=== PATIENT | female | born 1940 | race Caucasian/White ===

== ENCOUNTER 2019-04-09 05:36 | Inpatient (IN) | payer OTHER ==
[2019-03-30 17:14] VITALS: BMI 21.6
[~2019-04-09] VITALS: Ht 162.6 cm; Wt 67.3 kg
[2019-04-09] VITALS (29 sets, daily range): BP systolic 99–143; BP diastolic 53–85; PULSE 64–92; RESP 13–20; Ht 162.6 cm; Wt 67.3 kg
[2019-04-09] MEDS ORDERED: ACETAMINOPHEN 1000MG/100ML IV 100 ML IVPB ONE (06:00)
[2019-04-09] MEDS ORDERED: CEFAZOLIN 2 GM/50 ML (PMX) 50 ML (FOR WT < 120 KG) IVPB ONE (06:30)
[2019-04-09] MEDS ORDERED: ACETAMINOPHEN 500 MG TAB PO ONE (06:30)
[2019-04-09] MEDS ORDERED: LACTATED RINGER'S 1,000 ML IV SCH (06:30)
[2019-04-09] MEDS ORDERED: DEXAMETHASONE 4 MG/ML 1 ML INJ IV ONE (06:30)
[2019-04-09] MEDS ORDERED: POLYMYXIN B 500000 UNIT INJ ONE ×2 (06:59→08:17)
[2019-04-09] MEDS ORDERED: BACITRACIN 50000 UNITS INJ ONE (07:00)
[2019-04-09] MEDS ORDERED: POLYMYXIN/BACITRACIN 1L IRRIG ONE (07:00)
[2019-04-09] MEDS ORDERED: PROG100C5 ORAL (07:06)
[2019-04-09] MEDS ORDERED: BIMA2.5D OP (07:06)
[2019-04-09] MEDS ORDERED: TIMO15DR16 OP (07:06)
[2019-04-09] MEDS ORDERED: SIMV40TA7 ORAL (07:06)
[2019-04-09] MEDS ORDERED: ESTR0.5T ORAL (07:06)
--- NOTE | 2019-04-09 07:07 | PREAC ---
Date/Time of Note Date/Time of Note DATE: 04/09/19 TIME: 07:06 Anesthesia Eval and Record Evaluation Time Pre-Procedure Interview DATE: 04/09/19 TIME: 07:06 Age 79 Sex female NPO: 8 hrs Preoperative diagnosis Right hip degenerative joint disease Planned procedure Right anterior total hip replacement Past Medical History Past Medical History: Includes Cardio: Dyslipidemia Surgery & Anesthesia Issues No known issue Meds Anticoagulation: No Beta Keely within 24 hr: No Reason Beta Keely not given: Pt. not on B-Keely Reported Medications Timolol Maleate* (Timolol Maleate* Ophth) 0.5%-15ml Opht, 1 DROP OP BID 04/09/19 Bimatoprost* (Lumigan*) 0.01%-2.5 Ml Opht Drops, 1 DROP OP DAILY DIRECTED 04/09/19 Progesterone,Micronized* (Progesterone*) 100 Mg Capsule, 1 TAB ORAL DAILY 04/09/19 Estradiol (Estradiol) 0.5 Mg Tablet, 1 TAB ORAL DAILY 04/09/19 Simvastatin (Simvastatin) 40 Mg Tablet, 1 TAB ORAL DAILY 04/09/19 Current Medications Lactated Ringer's 1,000 ml @ 25 mls/hr Q24H IV ; Start 04/09/19 at 06:30; Stop 04/09/19 at 17:00 Tranexamic Acid 100 ml @ 200 mls/hr AT INCISION ONCE IVPB ; Start 04/09/19 at 07:30; Stop 04/09/19 at 07:59 Tranexamic Acid 100 ml @ 330 mls/hr AT CLOSURE ONCE IVPB ; Start 04/09/19 at 07:30; Stop 04/09/19 at 07:48 Ropivacaine/ Clonidine HCl/ Epinephrine/ Ketorolac Tromethamine/ Sodium Chloride INTRA-OP ONCE IRR ; Start 04/09/19 at 07:30; Stop 04/09/19 at 07:31 Meds reviewed: Yes Allergies Coded Allergies: No Known Allergy (Verified , 04/09/19) Allergies Reviewed: Yes Labs/Studies Labs Reviewed: Reviewed by anesthesiologist test: N/A Pre-procedure Exam Airway: Adequate mouth opening Mallampati: Mallampati I Teeth: Normal Lung: Normal Heart: Normal ASA Physical Status ASA physical status: 2 Emergency: None Planned Anesthetic General/MAC: ETT, LMA Pre-operative Attestations Prior to commencing anesthesia and surgery, the patient was re-evaluated, there was verification of: *The patient's identity *The results of appropriate recent lab work and preoperative vital signs *The above evaluation not changing prior to induction *Anesthetic plan, risk benefits, alternative and complications discussed with patient/family; questions answered; patient/family understands, accepts and wishes to proceed. AFRICA BALDERAS MD April 09, 2019 07:07
[2019-04-09] MEDS ORDERED: METOCLOPRAMIDE 10 MG INJ ONE (07:27)
[2019-04-09] MEDS ORDERED: PROPOFOL 20 ML ONE (07:27)
[2019-04-09] MEDS ORDERED: ONDANSETRON 4 MG INJ ONE (07:27)
[2019-04-09] MEDS ORDERED: LIDOCAINE 2% (SDV) 5 ML INJ ONE (07:27)
[2019-04-09] MEDS ORDERED: CEFAZOLIN 1 GM INJ ONE (07:27)
[2019-04-09] MEDS ORDERED: TRANEXAMIC ACID 1GM/100ML(PMX) 100 ML AT INCISION X1 IVPB ONE (07:30)
[2019-04-09] MEDS ORDERED: TRANEXAMIC ACID 1GM/100ML(PMX) 200 ML ONE (07:34)
--- NOTE | 2019-04-09 07:36 | HPN ---
Date/Time of Note Date/Time of Note DATE: 04/09/19 TIME: 07:35 Interval H&P Admission Note Pt. seen H&P reviewed: Systems changes noted below Rash noted on thighs, no sign of infection. Rash is from shaving, OK to proceed with surgery JESUS SAM April 09, 2019 07:36
[2019-04-09] MEDS: TRANEXAMIC ACID 1GM/100ML(PMX) 100 ML AT CLOSURE X1 IVPB ONE ×2 (07:56→08:44)
[2019-04-09] MEDS: LACTATED RINGER'S 1,000 ML IV SCH ×3 (07:58→20:24)
[2019-04-09] MEDS ORDERED: KETOROLAC 15 MG INJ IV PRN (08:00)
[2019-04-09] MEDS ORDERED: NACL 0.9% 3 ML SYG IV SCH (08:00)
[2019-04-09] MEDS ORDERED: DIPHENHYDRAMINE 50 MG INJ IV PRN ×2 (08:00→09:30)
[2019-04-09] MEDS ORDERED: NALOXONE (0.4 MG/ML) INJ IV PRN (08:00)
[2019-04-09] MEDS ORDERED: oxyCODONE 5 MG TAB PO PRN ×2 (08:00)
[2019-04-09] MEDS ORDERED: MAGNESIUM HYDROXIDE 30ML CUP PO PRN (08:00)
[2019-04-09] MEDS ORDERED: EPHEDrine 25 MG/5 ML SYG ONE (08:15)
[2019-04-09] MEDS: GABAPENTIN 100 MG CAP PO SCH ×4 (09:00→22:18)
--- NOTE | 2019-04-09 09:11 | SIPON ---
Date/Time of Note Date/Time of Note DATE: 04/09/19 TIME: 09:10 Operative Report Preoperative Diagnosis Right hip osteoarthritis Postoperative Diagnosis Same Operation/Procedure Performed Right total hip replacement Surgeon see signature line assistant food service director KIMO Jensen Anesthesia: spinal Estimated blood loss: 150 - 200 ml's Transfusion Required none Specimen Bone Grafts/Implants Romayor hip, 56 mm cup, size 5 stem, 36 mm ceramic head Complications none JESUS SAM April 09, 2019 09:11
--- NOTE | 2019-04-09 09:14 | OPR ---
Date/Time of Note Date/Time of Note DATE: 04/09/19 TIME: 09:11 Operative Report Procedure Date: April 09, 2019 Preoperative Diagnosis Right hip osteoarthritis Postoperative Diagnosis Same Operation/Procedure Performed Right total hip replacement Surgeon see signature line Scientific Advisor KIMO Jensen Anesthesia Type: spinal Estimated Blood Loss: 150 - 200 ml's Transfusion none Specimen Bone Grafts/Implants Jamie hip, 56 cup, 5 stem, 36+5 ceramic head Tubes/Drains None Complications none Pt Condition Post Procedure: stable Disposition: PACU Indications Patient is a 79-year-old lady with advanced osteoarthritis of her right hip Procedure Description The patient was placed supine on the operating room table. All bony points were well-padded the right hip was prepped and draped in usual manner. An anterior incision was made. The plane between the sartorius and tensor fascia gabriel was developed in a blunt fashion. Branches of the circumflex vessels were identified and cauterized with aqua Mantis. The hip capsule was opened. Advanced osteoarthritis was encountered. There was complete loss of cartilage, deformity of the femoral head and large osteophytes. Osteophytes were removed. Reaming of the acetabulum was done with [employer] reamers up to a size 55. A 56 trial cup was well fitting. The [place] cup was placed in 40 degrees of abduction and 20 degrees of anteversion. One screw was used to enhance fixation. A liner was placed to accommodate a 36 mm femoral head. The leg was extended and externally rotated. The IM canal was prepared for Actis stem. A size 5 stem was well fitting. This was placed with a standard offset neck and 36 mm head for trial reduction. The reduction was stable with a +5 head. A ceramic femoral head was placed. The hip was thoroughly irrigated and injected with pain cocktail. The wound was closed in layers using #1 strata fix for deep fascia, 2-0 Vicryl for subcutaneous tissue and 3-0 Monocryl for the skin. Patient was transferred to the recovery room in stable condition JESUS SAM April 09, 2019 09:14
[2019-04-09] MEDS ORDERED: FENTAnyl 50 MCG/ML VIAL IV PRN ×3 (09:30)
[2019-04-09] MEDS ORDERED: METOCLOPRAMIDE 10 MG INJ IV PRN (09:30)
[2019-04-09] MEDS ORDERED: OXYCODONE/ACETAMINOPHEN (5/325) TAB PO PRN ×2 (09:30)
[2019-04-09] MEDS ORDERED: MIDAZOLAM 1 MG/ML 2 ML INJ IV PRN (09:30)
[2019-04-09] MEDS ORDERED: LABETALOL HCL 20MG INJ IV PRN (09:30)
[2019-04-09] MEDS ORDERED: EPHEDrine 25 MG/5 ML SYG IV PRN (09:30)
[2019-04-09] MEDS ORDERED: ONDANSETRON 4 MG INJ IV PRN (09:30)
[2019-04-09] MEDS ORDERED: HYDROmorphONE 1 MG/5 ML IV SYRINGE IV PRN ×3 (09:30)
[2019-04-09] MEDS ORDERED: MEPERIDINE 25 MG INJ IV PRN (09:30)
[2019-04-09] MEDS ORDERED: hydrALAzine 20 MG INJ IV PRN (09:30)
[2019-04-09] MEDS: CEFAZOLIN 2 GM/50 ML (PMX) 50 ML IVPB SCH ×2 (10:01→16:52)
--- NOTE | 2019-04-09 13:28 | PAC ---
Date/Time of Note Date/Time of Note DATE: 04/09/19 TIME: 13:28 Post-Anesthesia Notes Post-Anesthesia Note Last documented vital signs Vital Signs Date Temp Pulse Resp B/P (MAP) Pulse Ox O2 O2 Flow FiO2 Time Delivery Rate 04/09/19 70 15 106/75 95 Room Air 13:13 (85) 04/09/19 6.0 09:43 04/09/19 98.2 09:32 Activity: WNL Respiratory function: WNL Cardiovascular function: WNL Mental status: Baseline Pain reasonably controlled: Yes Hydration appropriate: Yes Nausea/Vomiting absent: Yes Comments BT: 98.5 AFRICA BALDERAS MD April 09, 2019 13:28
[2019-04-09] MEDS ORDERED: BIMATOPROST 0.01% 2.5 ML BTL OP SCH (17:30)
--- NOTE | 2019-04-09 17:35 | HP ---
Date/Time of Note Date/Time of Note DATE: 04/09/19 TIME: 17:31 Assessment/Plan VTE Prophylaxis Risk score (from Ns)>0 risk: 5 [place] [facility] [place] Pharmacological prophylaxis: NA/contraindicated Pharm contraindication: surgical contra Lines/Catheters IV Catheter Type (from Nrsg): Peripheral IV Assessment/Plan Assessment/Plan -Right hip osteoarthritis. S/p Right total hip replacement by Dr. Gutierrez on 04/09/2019, continue IV fluids and postoperative antibiotic. Continue oxycodone and Toradol as needed for pain and Zofran as needed for nausea. Physical therapy. -HLD, continue statin. Further recommendations based on clinical course. Plan of care discussed with Dr. Boswell. HPI/ROS Admit Date/Time Admit Date/Time April 09, 2019 at 05:36 Hx of Present Illness The patient is a 79-year-old female with hyperlipidemia, advanced osteoarthritis and glaucoma. Patient was evaluated for increased pain in her right hip by Dr. Gutierrez in orthopedic surgery consultation. Patient had a history of left total hip replacement in 2008. Patient wanted definitive treatment and underwent total right hip replacement today. Patient is admitted for further management to medical surgical floor. Patient denies any chest pain denies shortness of breath denies any nausea. ROS 12 point review of system is negative except for what mentioned in HPI PMH/Family/Social Past Medical History Medical History: high cholesterol, other (Glaucoma) Medications Current Medications Lactated Ringer's 1,000 ml @ 80 mls/hr [id number] IV Last administered on 04/09/19at 14:55; Admin Dose 80 MLS/HR; Start 04/09/19 at 07:58 Oxycodone HCl (Roxicodone) 10 mg Q4H PRN PO .PAIN; Start 04/09/19 at 08:00 Oxycodone HCl (Roxicodone) 5 mg Q4H PRN PO .PAIN; Start 04/09/19 at 08:00 Ondansetron HCl (Zofran Inj) 4 mg Q4H PRN IV NAUSEA/VOMITING; Start 04/10/19 at 08:00 Cefazolin Sodium/ Dextrose 50 ml @ 100 mls/hr Q8H IVPB Last administered on 04/09/19at 16:52; Admin Dose 100 MLS/HR; Start 04/09/19 at 08:00; Stop 04/10/19 at 00:29 Celecoxib (Celebrex) 100 mg BID PO ; Start 04/10/19 at 09:00 Gabapentin (Neurontin) 100 mg TID PO Last administered on 04/09/19at 14:53; Admin Dose 100 MG; Start 04/09/19 at 09:00 Pantoprazole (Protonix Tab) 40 mg DAILY@06 PO ; Start 04/10/19 at 06:00 Docusate Sodium (Colace) 200 mg BID PO ; Start 04/10/19 at 09:00; Stop 04/12/19 at 21:01 Magnesium Hydroxide (Milk Of Mag) 30 ml HS PRN PO .CONSTIPATION; Start 04/09/19 at 08:00 Diphenhydramine HCl (Benadryl) 25 mg Q4H PRN IV .ITCHING; Start 04/09/19 at 08:00 Ketorolac Tromethamine (Toradol) 15 mg Q6H PRN IV .PAIN; Start 04/09/19 at 08:00 Naloxone HCl (Narcan) 0.2 mg Q2M PRN IV .RESP RATE; Start 04/09/19 at 08:00 IV Flush (NS 3 ml) 3 ml per protocol IV ; Start 04/09/19 at 08:00 Aspirin (Halfprin) 81 mg BID PO ; Start 04/10/19 at 09:00 Hydromorphone HCl (Dilaudid) 0.2 mg PACU PRN IV MILD PAIN 1-3; Start 04/09/19 at 09:30; Stop 04/09/19 at 18:00 Hydromorphone HCl (Dilaudid) 0.4 mg PACU PRN IV MOD PAIN 4-6; Start 04/09/19 at 09:30; Stop 04/09/19 at 18:00 Hydromorphone HCl (Dilaudid) 0.6 mg PACU PRN IV SEVERE PAIN 7-10; Start 04/09/19 at 09:30; Stop 04/09/19 at 18:00 Fentanyl (Sublimaze) 25 mcg PACU ORDER PRN IV MILD PAIN 1-3; Start 04/09/19 at 09:30; Stop 04/09/19 at 18:00 Fentanyl (Sublimaze) 50 mcg PACU ORDER PRN IV MOD PAIN 4-6; Start 04/09/19 at 09:30; Stop 04/09/19 at 18:00 Fentanyl (Sublimaze) 75 mcg PACU ORDER PRN IV SEVERE PAIN 7-10; Start 04/09/19 at 09:30; Stop 04/09/19 at 18:00 Oxycodone/ Acetaminophen (Percocet (5/ 325)) 1 tab PACU ORDER PRN PO .PAIN 1-5; Start 04/09/19 at 09:30; Stop 04/09/19 at 18:00 Oxycodone/ Acetaminophen (Percocet (5/ 325)) 2 tab PACU ORDER PRN PO .PAIN 6-10 Last administered on 04/09/19at 10:32; Admin Dose 2 TAB; Start 04/09/19 at 09:30; Stop 04/09/19 at 18:00 Ondansetron HCl (Zofran Inj) 4 mg PACU ORDER PRN IV NAUSEA/VOMITING Last administered on 04/09/19at 10:31; Admin Dose 4 MG; Start 04/09/19 at 09:30; Stop 04/09/19 at 18:00 Metoclopramide HCl (Reglan) 10 mg PACU ORDER PRN IV NAUSEA/VOMITING; Start 04/09/19 at 09:30; Stop 04/09/19 at 18:00 Labetalol HCl (Labetalol) 5 mg PACU ORDER PRN IV HIGH BLOOD PRESSURE; Start 04/09/19 at 09:30; Stop 04/09/19 at 18:00 Hydralazine HCl (Apresoline) 5 mg PACU ORDER PRN IV HIGH BLOOD PRESSURE; Start 04/09/19 at 09:30; Stop 04/09/19 at 18:00 Ephedrine Sulfate 5 mg PACU ORDER PRN IV BLOOD PRESSURE SUPPORT; Start 04/09/19 at 09:30; Stop 04/09/19 at 18:00 Meperidine HCl (Demerol) 25 mg PACU ORDER PRN IV .RIGORS; Start 04/09/19 at 09:30; Stop 04/09/19 at 18:00 Diphenhydramine HCl (Benadryl) 25 mg PACU ORDER PRN IV .PRURITUS; Start 04/09/19 at 09:30; Stop 04/09/19 at 18:00 Midazolam HCl (Versed) 0.5 mg PACU ORDER PRN IV .ANXIETY; Start 04/09/19 at 09:30; Stop 04/09/19 at 18:00 Coded Allergies: No Known Allergy (Verified , 04/09/19) Past Surgical History Past Surgical Hx: appendectomy, other (Status post left hip replacement in 2008) Family History Significant Family History: no pertinent family hx Social History Alcohol Use: occasionally Smoking Status: Never smoker Drug Use: none Exam/Review of Systems Vital Signs Vitals Vital Signs Date Temp Pulse Resp B/P (MAP) Pulse Ox O2 O2 Flow FiO2 Time Delivery Rate 04/09/19 84 18 132/72 97 Room Air 16:30 (92) 04/09/19 97.7 13:45 04/09/19 6.0 09:43 Exam Constitutional: alert, oriented Head: normocephalic Neck: supple Respiratory: clear to auscultation Cardiovascular: nl pulses Gastrointestinal: soft, non-tender Musculoskeletal: other (Status post total right knee replacement) Extremities: normal pulses Neurological: nl mental status Skin: nl MAKENZIE Vargas April 09, 2019 17:35
[2019-04-09] MEDS ORDERED: LATANOPROST 0.005% 2.5 ML OPH BOTH EYES SCH (18:00)
[2019-04-09] MEDS ORDERED: LUMIGAN 0.01% BOTH EYES SCH ×2 (21:00→22:27)
[2019-04-09] MEDS ORDERED: ESTRADIOL 1 MG TAB PO SCH (21:00)
[2019-04-09] MEDS ORDERED: ATORVASTATIN 20 MG TAB PO SCH (21:00)
[2019-04-09] MEDS ORDERED: TIMOLOL 0.5% 5 ML OPH BOTH EYES SCH (21:00)
[2019-04-09] MEDS ORDERED: LACTOBACILLUS RHAMNOSUS CAP PO SCH (21:00)
[2019-04-09] MEDS: PROGESTERONE 100 MG CAP PO SCH (22:18)
[2019-04-09] MEDS: TIMOLOL 0.5% 5 ML OPH BOTH EYES SCH (22:18)
[2019-04-09] MEDS: PROBIOTIC 10 PO SCH (22:20)
[2019-04-09] MEDS: ESTRADIOL 0.5 MG PO SCH (22:20)
[2019-04-09] MEDS: SIMVASTATIN 40 MG PO SCH (22:22)
[2019-04-10] MEDS: CEFAZOLIN 2 GM/50 ML (PMX) 50 ML IVPB SCH (00:58)
[2019-04-10 02:00] VITALS: BP 124/60; PULSE 73; RESP 18
[2019-04-10] MEDS: PANTOPRAZOLE (EC) 40 MG TAB PO SCH (06:00)
[2019-04-10 07:44] VITALS: BP 131/60; PULSE 79; RESP 18
[2019-04-10] MEDS ORDERED: ONDANSETRON 4 MG INJ IV PRN (08:00)
[2019-04-10] MEDS ORDERED: ESTRADIOL ORAL SCH (09:00)
[2019-04-10] MEDS ORDERED: PROGESTERONE 100 MG CAP PO SCH (09:00)
[2019-04-10] MEDS: ASPIRIN (EC) 81 MG TAB PO SCH ×2 (09:42→21:00)
[2019-04-10] MEDS: GABAPENTIN 100 MG CAP PO SCH ×3 (09:43→21:00)
[2019-04-10] MEDS: DOCUSATE SODIUM 100 MG CAP PO SCH ×2 (09:43→21:00)
[2019-04-10] MEDS: TIMOLOL 0.5% 5 ML OPH BOTH EYES SCH ×2 (09:44→20:59)
[2019-04-10] MEDS: CELECOXIB 100 MG CAP PO SCH ×2 (09:44→21:00)
--- NOTE | 2019-04-10 12:56 | PN ---
DATE: 04/10/2019 SUBJECTIVE: The patient still has significant postoperative pain in the right hip. Denies any chest pain, shortness of breath. No history of nausea or vomiting. PHYSICAL EXAMINATION: GENERAL: Reveals the patient to be awake, alert. VITAL SIGNS: Temperature 98.6, pulse 79, respiration 19, blood pressure 131/60, O2 sat is 94% on tomy m air. HEENT: No eye discharge or redness. Conjunctivae and lids are normal. Oropharynx is clear. NECK: No mass. CHEST: Fairly clear. CARDIOVASCULAR: S1, S2 normal. No murmur. ABDOMEN: Soft, nondistended, nontender. EXTREMITIES: No edema. NEUROLOGIC: The patient is awake, alert, follows simple commands. LABORATORY DATA: Done this morning, WBC 11.5, hemoglobin 11.2, platelet 215. Chemistry is unremarka ble with potassium of 4.5, BUN 20, creatinine 0.9. IMPRESSION: 1. Right hip osteoarthritis status post right total knee replacement. 2. Dyslipidemia. PLAN: The patient will continue aspirin 81 mg b.i.d. for DVT prophylaxis. Continue Celebrex, Neuron tin and Roxicodone for pain control. Continue PT as tolerated. DISPOSITION: Once cleared by Dr. Sam. We will continue to follow. Dictated By: DERRICK ERIC/CLAUDIA Conf#: [id number] DID#: [id number] CC: JESUS SAM MD;*EndCC*
--- NOTE | 2019-04-10 15:01 | PN ---
Date/Time of Note Date/Time of Note DATE: 04/10/19 TIME: 15:00 Assessment/Plan Lines/Catheters IV Catheter Type (from Nrsg): Saline Lock Kimble in Place (from Nrsg): No Assessment/Plan Chief Complaint/Hosp Course POD#1 s/p primary right JEROD -Post op H&H stable -PT/OT. -Joints pain control protocol -DVT prophylaxis: SCD's, ASA 81 mg twice daily -Weight bearing status: as tolerated -Post-op XR ordered -Diet: ADAT -Kimble: Discontinue -Discharge planning consult Planned Discharge Date: Tomorrow Discharge to to [facility] Subjective 24 Hr Interval Summary Patient doing well No acute events overnight Pain is moderately well controlled Exam/Review of Systems Vital Signs Vitals Vital Signs Date Temp Pulse Resp B/P (MAP) Pulse Ox O2 O2 Flow FiO2 Time Delivery Rate 04/10/19 98.6 79 18 131/60 94 07:44 (83) 04/09/19 Room Air 16:30 04/09/19 6.0 09:43 Intake and Output 04/09/19 04/09/19 04/10/19 1515:00 23:00 07:00 IntakeIntake Total 400 ml 1240 ml 390 ml OutputOutput Total 10 ml 800 ml BalanceBalance 390 ml 440 ml 390 ml Exam Free Text/Dictation Right lower extremity: Dressing: clean, dry, and intact, no erythema Sensation intact to light touch in a sural, saphenous, deep peroneal, superficial peroneal, medial and lateral plantar nerve distribution. Motor is intact, patient able to dorsiflex and plantarflex ankle and extend and flex great toe. Dorsalis Pedis pulse +2, Brisk capillary refill. Compartments are soft. Calves non-tender to palpation bilaterally. Results Result Diagram: 04/10/19 0440 04/10/19 0440 DANIELLA GIL MD April 10, 2019 15:01
[2019-04-10 15:29] VITALS: BP 120/57; PULSE 71; RESP 19
[2019-04-10 20:00] VITALS: BP 119/56; PULSE 76; RESP 16
[2019-04-10] MEDS: PROBIOTIC 10 PO SCH (20:59)
[2019-04-10] MEDS: ESTRADIOL 0.5 MG PO SCH (20:59)
[2019-04-10] MEDS: PROGESTERONE 100 MG CAP PO SCH (21:00)
[2019-04-10] MEDS: SIMVASTATIN 40 MG PO SCH (21:00)
[2019-04-10] MEDS: LACTATED RINGER'S 1,000 ML IV SCH (21:28)
[2019-04-11 02:05] VITALS: BP 119/56; PULSE 72; RESP 16
[2019-04-11] MEDS: PANTOPRAZOLE (EC) 40 MG TAB PO SCH (06:32)
[2019-04-11 09:13] VITALS: BP 123/71; PULSE 89; RESP 18
[2019-04-11] MEDS: GABAPENTIN 100 MG CAP PO SCH ×2 (09:27→14:21)
[2019-04-11] MEDS: TIMOLOL 0.5% 5 ML OPH BOTH EYES SCH (09:28)
[2019-04-11] MEDS: ASPIRIN (EC) 81 MG TAB PO SCH (09:28)
[2019-04-11] MEDS: DOCUSATE SODIUM 100 MG CAP PO SCH (09:28)
[2019-04-11] MEDS: CELECOXIB 100 MG CAP PO SCH (09:28)
[2019-04-11] MEDS: LACTATED RINGER'S 1,000 ML IV SCH (09:39)
--- NOTE | 2019-04-11 09:58 | PN ---
Date/Time of Note Date/Time of Note DATE: 04/11/19 TIME: 09:57 Assessment/Plan Lines/Catheters IV Catheter Type (from Nrsg): Saline Lock Kimble in Place (from Nrsg): No Assessment/Plan Chief Complaint/Hosp Course POD#2 s/p primary right JEROD. Patient is doing well overall. She is anxious this morning. Patient is concerned about pain over her anterior thigh. Stated that her swelling and pain is within normal limits and to be expected at this time. She is medically stable and surgically stable to be discharged today. -Post op H&H stable -PT/OT. -Joints pain control protocol -DVT prophylaxis: SCD's, ASA 81 mg twice daily -Weight bearing status: as tolerated -Diet: ADAT -Kimble: Discontinue -Discharge planning consult Planned Discharge Date: Tomorrow Discharge to to [facility] Subjective 24 Hr Interval Summary Patient doing well No acute events overnight Pain is moderately well controlled. Patient is anxious. Exam/Review of Systems Vital Signs Vitals Vital Signs Date Temp Pulse Resp B/P (MAP) Pulse Ox O2 O2 Flow FiO2 Time Delivery Rate 04/11/19 98.4 89 18 123/71 96 09:13 (88) 04/10/19 Room Air 15:29 04/09/19 6.0 09:43 Intake and Output 04/10/19 04/10/19 04/11/19 1515:00 23:00 07:00 IntakeIntake Total 640 ml 480 ml 320 ml BalanceBalance 640 ml 480 ml 320 ml Exam Free Text/Dictation Right lower extremity: Dressing: clean, dry, and intact, no erythema. Mild swelling to right thigh. No ecchymosis. No deformity. Sensation intact to light touch in a sural, saphenous, deep peroneal, superficial peroneal, medial and lateral plantar nerve distribution. Motor is intact, patient able to dorsiflex and plantarflex ankle and extend and flex great toe. Dorsalis Pedis pulse +2, Brisk capillary refill. Compartments are soft. Calves non-tender to palpation bilaterally. Results Result Diagram: 04/11/19 0444 04/11/19 0444 DANIELLA GIL MD April 11, 2019 09:58
--- NOTE | 2019-04-11 10:01 | DS ---
Date/Time of Note Date/Time of Note DATE: 04/11/19 TIME: 10:01 Discharge Summary Admission/Discharge Info Admit Date/Time April 09, 2019 at 05:36 Discharge Date/Time Patient Condition: Good Hospital Course POD#2 s/p primary right JEROD. Patient is doing well overall. She is anxious this morning. Patient is concerned about pain over her anterior thigh. Stated that her swelling and pain is within normal limits and to be expected at this time. She is medically stable and surgically stable to be discharged today. -Post op H&H stable -PT/OT. -Joints pain control protocol -DVT prophylaxis: SCD's, ASA 81 mg twice daily -Weight bearing status: as tolerated -Diet: ADAT -Kimble: Discontinue -Discharge planning consult Planned Discharge Date: Tomorrow Discharge to to [facility] Meds Reported Medications Timolol Maleate* (Timolol Maleate* Ophth) 0.5%-15ml Opht, 1 DROP OP BID 04/09/19 Bimatoprost* (Lumigan*) 0.01%-2.5 Ml Opht Drops, 1 DROP OP DAILY DIRECTED 04/09/19 Progesterone,Micronized* (Progesterone*) 100 Mg Capsule, 1 TAB ORAL DAILY 04/09/19 Estradiol (Estradiol) 0.5 Mg Tablet, 1 TAB ORAL DAILY 04/09/19 Simvastatin (Simvastatin) 40 Mg Tablet, 1 TAB ORAL DAILY 04/09/19 Primary Care Provider Not On Staff Doctor Time spent on discharge: < 30 minutes Pending Labs Laboratory Tests Test 04/11/19 04:44 White Blood Count 9.3 10^3/ul (4.8-10.8) Red Blood Count 3.81 10^6/ul (4.20-5.40) Hemoglobin 11.5 g/dl (12.0-16.0) Hematocrit 35.5 % (37.0-47.0) Mean Corpuscular Volume 93.2 fl (82.0-101.0) Mean Corpuscular Hemoglobin 30.2 pg (29.0-33.0) Mean Corpuscular Hemoglobin Concent 32.4 g/dl (32.0-37.0) Red Cell Distribution Width 13.4 % (11.5-14.5) Platelet Count 206 10^3/UL (140-415) Mean Platelet Volume 10.3 fl (7.4-10.4) Immature Granulocytes % 0.200 % (0.001-0.429) Neutrophils % 65.3 % (39.0-77.0) Lymphocytes % 20.0 % (15.0-51.0) Monocytes % 11.9 % (0.0-11.0) Eosinophils % 2.1 % (0.0-7.0) Basophils % 0.5 % (0.0-2.0) Nucleated Red Blood Cells % 0.0 /100WBC (0.0-0.0) Immature Granulocytes # 0.020 10^3/ul (0.0-0.031) Neutrophils # 6.1 10^3/ul (1.6-7.5) Lymphocytes # 1.9 10^3/ul (0.8-2.9) Monocytes # 1.1 10^3/ul (0.3-0.9) Eosinophils # 0.2 10^3/ul (0.0-0.5) Basophils # 0.1 10^3/ul (0.0-0.1) Nucleated Red Blood Cells # 0.0 10^3/ul (0.0-0.0) Sodium Level 139 mmol/L (135-144) Potassium Level 4.5 mmol/L (3.5-5.1) Chloride Level 106 mmol/L (97-110) Carbon Dioxide Level 30 mmol/L (21-31) Anion Gap 3 (5-13) Blood Urea Nitrogen 16 mg/dl (7-20) Creatinine 0.95 mg/dl (0.44-1.00) Est Glomerular Filtrat Rate mL/min mL/min (>60) Glucose Level 120 mg/dl (70-220) Calcium Level 9.1 mg/dl (8.4-10.2) DANIELLA GIL MD April 11, 2019 10:01
== END 2019-04-11 15:45 | DRG 470 ==
LOC: REC 05:36 → MS1 13:14
PROVIDERS: ADMIT Orthopaedic Surgery; ATTEND Orthopaedic Surgery
PROC: 0SR904A Replacement of Right Hip Joint with Ceramic on Polyethylene Synthetic Substitute, Uncemented, Open Approach (ICD-10-PCS; principal; 2019-04-09 07:30)
DX: M16.11 Unilateral primary osteoarthritis, right hip (principal); E78.5 Hyperlipidemia, unspecified; H40.9 Unspecified glaucoma; E78.00 Pure hypercholesterolemia, unspecified; R73.03 Prediabetes
CPT/HCPCS: 73530; 80048; 85025; 86850; 86900; 86901; 87081; 97116; 97161; 97167; 97530; 97535; C1713; C1776; J0131; J0171; J0690; J0735; J1100; J1885; J2405; J2765; J2795; J7120